=== PATIENT | female | born 1990 | race Two or more races ===

== ENCOUNTER 2019-06-10 12:42 | Emergency (ER) | payer OTHER ==
[~2019-06-10] VITALS: Ht 152.4 cm; Wt 77.1 kg
--- NOTE | 2019-06-10 13:02 | NUR ---
CHEST PAIN, PALPITATION AND DENIZ ARMS SHAKING SINCE 1000 AT WORK. PT AAOX4, VSS. RR EVEN & UNLABORED. DENIES SOB, DIZZINESS, N/V, WEAKNESS AT THIS TIME. 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 AWAITING EVAL BY LALA/ & WILL CONT TO MONITOR.
[2019-06-10 13:27] LABS: BASOPHILS # (AUTO) 0.1 /CMM (0.0-0.2); BASOPHILS % (AUTO) 1.2 % (0.0-2.0); EOSINOPHILS % (AUTO) 0.7 % (0.0-6.0); HEMATOCRIT 41 % (33-45); HEMOGLOBIN 13.7 g/dL (11.5-14.8); LYMPHOCYTES # (AUTO) 2.1 /CMM (0.8-4.8); LYMPHOCYTES % (AUTO) 39.8 % (20.0-44.0); MEAN CORPUSCULAR HGB CONC 33 g/dl (31.0-36.0); MEAN CORPUSCULAR VOLUME 86 fL (82-100); MONOCYTES # (AUTO) 0.7 /CMM (0.1-1.30); MONOCYTES % (AUTO) 12.6 % (2.0-12.0); NEUTROPHILS # (AUTO) 2.4 /CMM (1.8-8.9); NEUTROPHILS % (AUTO) 45.7 % (43.0-81.0); PLATELET COUNT (AUTO) 244 /CMM (150-450); RED BLOOD CELL COUNT(AUTO) 4.78 MIL/uL (4.0-5.2); WHITE BLOOD COUNT (AUTO) 5.2 K/uL (4.3-11.0)
[2019-06-10] MEDS ORDERED: LORAZEPAM 1 MG TABLET PO ONE (13:30)
[2019-06-10] MEDS ORDERED: ASPIRIN 81 MG TAB.CHEW PO ONE (13:30)
[2019-06-10] MEDS ORDERED: ASPIRIN 81 MG TAB.CHEW ONE (13:32)
[2019-06-10] MEDS ORDERED: LORAZEPAM 1 MG TABLET ONE (13:32)
[2019-06-10 13:34] LABS: CALCIUM, SERUM 8.7 mg/dL (8.5-10.1); CARBON DIOXIDE 26 mmol/L (21-32); CHLORIDE 107 mmol/L (98-107); CREATININE 0.8 mg/dL (0.6-1.3); GLUCOSE 96 mg/dL (74-106); POTASSIUM 3.6 mmol/L (3.5-5.1); SODIUM SERUM 142 mmol/L (136-145); UREA NITROGEN, BLOOD 17 mg/dL (7-18)
[2019-06-10 14:45] VITALS: BP 122/85
--- NOTE | 2019-06-10 14:58 | NUR ---
IV removed. Catheter intact and site benign. Pressure and 4x4 applied to site. No bleeding noted.Patient discharged to home in stable condition. Written and verbal after care instructions given. Patient verbalizes understanding of instruction.
== END 2019-06-10 15:01 | disposition home or self-care (01) ==
LOC: ER 12:42
DX: F41.9 Anxiety disorder, unspecified (principal)
CPT/HCPCS: 36415; 71045-TC; 80048-TC; 84484-TC; 85025-TC

== ENCOUNTER 2020-08-11 14:11 | Emergency (ER) | payer OTHER ==
[~2020-08-11] VITALS: Ht 154.9 cm; Wt 74.8 kg
--- NOTE | 2020-08-11 14:19 | NUR ---
came in for palpitations l sided chest pressure, lightheadedness since last night , to ER bed 10, changed to hosp gown, hooked to BP cuff and monitor, provided w warm blanket, patient aao x 4, breathing even and unlabored, no distress noted. Dr Osorio at bedside for eval
--- NOTE | 2020-08-11 15:49 | NUR ---
Patient discharged to home in stable condition. Written and verbal after care instructions given. Patient verbalizes understanding of instruction.
[2020-08-11 15:53] VITALS: BP 132/90
== END 2020-08-11 15:50 | disposition home or self-care (01) ==
LOC: ER 15:21
DX: R00.2 Palpitations (principal); R07.89 Other chest pain; R42 Dizziness and giddiness